=== PATIENT | male | born 1950 | race Caucasian/White ===

== ENCOUNTER 2016-08-23 13:23 | Emergency (ER) | payer MEDICARE ==
[~2016-08-23] VITALS: Ht 167.6 cm; Wt 84.6 kg
[~2016-08-23 13:23] MED LIST: AMLO5TAB2 PO; ASPI-515 PO; ASPI325T4 PO; ATOR80TA75 PO; CALC250T PO; CHOL10003 PO; CLON-364 PO; CLON2TAB2 PO; FISH1CAP PO; IBUP800T PO; METO-99 PO; MULT-717 PO; OXYC-229 PO; OXYC20TA2 PO; RISP2TAB3 PO; SIMV20TA3 PO; TRAZ100T15 PO; VITA1TAB19 PO; VITA400C42 PO
[2016-08-23] MEDS ORDERED: SODIUM CHLORIDE 0.9% 1,000 ML IV ONE (13:38)
[2016-08-23] MEDS ORDERED: ASPIRIN 81 MG TABLET CHEW PO ONE (14:00)
[2016-08-23] MEDS ORDERED: SODIUM CHLORIDE FLUSH 10ML SYR IVF ONE (14:00)
[2016-08-23 14:13] LABS: HEMOGLOBIN 12.5 g/dL (13.7-18.0)
[2016-08-23 14:26] LABS: ASPARTATE AMINO TRANSFERASE 13 U/L (15-37); BLOOD UREA NITROGEN 14 mg/dL (7-18)
[2016-08-23 14:31] LABS: IS PT STATUS REG ER OR PRE ER? YES
[2016-08-23 17:08] VITALS: BP 147/79
[2016-08-23] MEDS ORDERED: ASPIRIN 81 MG TABLET CHEW ONE (18:41)
[2016-08-23 20:04] LABS: DAU SCREEN DISCLAIMER
== END 2016-08-23 20:11 | disposition home or self-care (01) ==
LOC: ED 19:52
DX: R53.1 Weakness (principal); M54.5 Low back pain; G89.29 Other chronic pain; R41.82 Altered mental status, unspecified; Z86.73 Personal history of transient ischemic attack (TIA), and cerebral infarction without residual deficits; I10 Essential (primary) hypertension; R73.9 Hyperglycemia, unspecified; R51 Headache; R29.6 Repeated falls; I48.91 Unspecified atrial fibrillation
CPT/HCPCS: 36415; 70450; 71010; 80053; 80307; 81003; 83880; 84484; 85025; 93005; 96360; 99285; J7030

== ENCOUNTER 2016-10-08 19:45 | Emergency (ER) | payer MEDICARE ==
[~2016-10-08] VITALS: Ht 167.6 cm; Wt 89.4 kg
[2016-10-08] MEDS ORDERED: SODIUM CHLORIDE 0.9% 1,000 ML IV ONE (19:54)
[2016-10-08] MEDS ORDERED: SODIUM CHLORIDE FLUSH 10ML SYR IVF ONE (20:00)
[2016-10-08] MEDS ORDERED: OXYC10TA6 PO (20:21)
[2016-10-08] MEDS ORDERED: VITA1TAB55 PO-COUM (20:27)
[2016-10-08] MEDS ORDERED: IBUP800T PO (20:27)
[2016-10-08] MEDS ORDERED: calcium PO (20:27)
[2016-10-08] MEDS ORDERED: METO-99 PO (20:27)
[2016-10-08] MEDS ORDERED: VITA400C42 PO (20:27)
[2016-10-08] MEDS ORDERED: PROM25TA10 PO (20:27)
[2016-10-08 20:35] LABS: ASPARTATE AMINO TRANSFERASE 7 U/L (15-37); BLOOD UREA NITROGEN 11 mg/dL (7-18)
[2016-10-08 20:58] VITALS: BP 132/63
[2016-10-08] MEDS ORDERED: OMNIPAQUE 350 MG/ML, 100ML BOTTLE ONE (23:59)
== END 2016-10-08 22:46 | disposition home or self-care (01) ==
LOC: ED 20:49
DX: R10.84 Generalized abdominal pain (principal); R11.0 Nausea; I10 Essential (primary) hypertension; R73.9 Hyperglycemia, unspecified; Z86.73 Personal history of transient ischemic attack (TIA), and cerebral infarction without residual deficits
CPT/HCPCS: 36415; 74177; 80053; 81003; 83605; 83690; 85025; 99285; Q9967

== ENCOUNTER 2016-11-04 11:50 | Emergency (ER) | payer MEDICARE ==
[~2016-11-04] VITALS: Ht 167.6 cm; Wt 90.8 kg
[~2016-11-04 11:50] MED LIST changes: +OXYC10TA6 PO; +PROM25TA10 PO; +VITA1TAB55 PO-COUM; +calcium PO
[2016-11-04 11:55] VITALS: BP 128/77
[2016-11-04] MEDS ORDERED: OXYcodone/APAP 5/325MG TABLET PO ONE (13:00)
[2016-11-04] MEDS ORDERED: HYDROmorphone 1 MG/ML, 1ML ONE (14:23)
[2016-11-04] MEDS ORDERED: HYDROmorphone 1 MG/ML, 1ML IM ONE (14:30)
== END 2016-11-04 15:18 | disposition home or self-care (01) ==
LOC: ED 14:25
DX: S39.012A Strain of muscle, fascia and tendon of lower back, initial encounter (principal); W19.XXXA Unspecified fall, initial encounter; Y93.89 Activity, other specified; Y92.89 Other specified places as the place of occurrence of the external cause; Y99.9 Unspecified external cause status; I10 Essential (primary) hypertension; Z86.73 Personal history of transient ischemic attack (TIA), and cerebral infarction without residual deficits
CPT/HCPCS: 72110; 96372; 99284; J1170

== ENCOUNTER 2017-10-11 10:18 | Emergency (ER) | payer MEDICARE ==
[~2017-10-11] VITALS: Ht 167.6 cm; Wt 91.0 kg
[~2017-10-11 10:18] MED LIST changes: +ASPI325T17 PO; -ASPI325T4 PO; +ATOR-2 PO; -ATOR80TA75 PO; +IBUP-1223 PO; -IBUP800T PO; -OXYC-229 PO; +OXYC-307 PO
[2017-10-11 10:56] LABS: BASOPHILS # (AUTO) 0.03 x10^3/uL (0-0.1); BASOPHILS % (AUTO) 0 % (0-1); EOSINOPHILS # (AUTO) 0.11 x10^3/uL (0-0.4); EOSINOPHILS % (AUTO) 1 % (1-7); LYMPHOCYTES # (AUTO) 1.06 x10^3/uL (1-3.4); LYMPHOCYTES % (AUTO) 14 % (22-44); MD NO; MEAN CORPUSCULAR HEMOGLOBIN 29.1 pg (27.5-34.5); MEAN CORPUSCULAR HGB CONC 33.6 g/dL (33.2-36.2); MEAN CORPUSCULAR VOLUME 86.7 fL (81-97); MEAN PLATELET VOLUME 7.7 fL (7.4-10.4); MONOCYTES # (AUTO) 0.52 x10^3/uL (0.2-0.8); MONOCYTES % (AUTO) 7 % (2-9); NEUTROPHILS # (AUTO) 5.94 x10^3/uL (1.8-6.8); NEUTROPHILS % (AUTO) 78 % (42-75); PLATELET COUNT 255 x10^3/uL (130-400); RED BLOOD COUNT 4.57 x10^6/uL (4.38-5.82); RED CELL DISTRIBUTION WIDTH 15.6 % (9.4-14.8)
[2017-10-11] MEDS ORDERED: SODIUM CHLORIDE FLUSH 10ML SYR IVF ONE (11:00)
[2017-10-11 11:02] LABS: INTERNATIONAL NORMALIZED RATIO 1.12 (0.93-1.1); PROTHROMBIN TIME 11.6 Seconds (9.6-11.5)
[2017-10-11 11:07] LABS: ALANINE AMINOTRANSFERASE 20 U/L (12-78); ALBUMIN 3.4 g/dL (3.4-5.0); ANION GAP 5 mmol/L (5-15); CALCIUM 8.3 mg/dL (8.5-10.1); CHLORIDE 105 mmol/L (98-107); CREATININE 1.15 mg/dL (0.7-1.3)
[2017-10-11 11:09] LABS: ALKALINE PHOSPHATASE 91 U/L (45-117); BILIRUBIN,TOTAL 0.3 mg/dL (0.2-1.0)
[2017-10-11] MEDS ORDERED: GADOBUTROL 10 MMOL/10 ML PFS ONE (11:43)
[2017-10-11 12:02] LABS: ACETAMINOPHEN < 2 mcg/mL (10-30); SALICYLATE LEVEL < 1.7 mg/dL (2.8-20.0)
[2017-10-11 12:58] LABS: MICROSCOPIC NOT IND
[2017-10-11 13:00] LABS: CULTURE INDICATED? NO
[2017-10-11 13:11] LABS: AMPHETAMINE SCREEN, URINE Negative (Negative); BARBITURATE SCREEN, URINE Negative (Negative); BENZODIAZEPINE SCREEN, URINE Negative (Negative); CANNABINOID SCREEN, URINE Negative (Negative); COCAINE SCREEN, URINE Negative (Negative); METHADONE SCREEN, URINE Negative (Negative); OPIATE SCREEN, URINE Positive (Negative)
[2017-10-11 13:29] VITALS: BP 139/66
== END 2017-10-11 14:18 | disposition home or self-care (01) ==
LOC: ED 14:12
DX: R47.81 Slurred speech (principal); I10 Essential (primary) hypertension; E11.65 Type 2 diabetes mellitus with hyperglycemia; G89.29 Other chronic pain; F31.9 Bipolar disorder, unspecified; Z86.73 Personal history of transient ischemic attack (TIA), and cerebral infarction without residual deficits
CPT/HCPCS: 36415; 70450; 70553; 71045; 80053; 80307; 80329; 81003; 82140; 82962; 85025; 85610; 93005; 99285; A9585; G0480

== ENCOUNTER 2018-09-11 02:17 | Emergency (ER) | payer MEDICARE ==
[~2018-09-11] VITALS: Ht 167.6 cm; Wt 82.0 kg
[~2018-09-11 02:17] MED LIST changes: +AMLO-150 PO; -AMLO5TAB2 PO; -CLON-364 PO; +CLON0.5T11 PO; -CLON2TAB2 PO; +CLON2TAB9 PO; +TRAZ-137 PO; -TRAZ100T15 PO
--- NOTE | 2018-09-11 02:29 | NUR ---
PT TO ROOM FROM TRIAGE WITH C/O diffuse abdominal pain x 1 week, worse today, and worse after eating. Pt denies any N/V/D.
[2018-09-11] MEDS ORDERED: ONDANSETRON 2MG/ML, 2ML ONE (02:47)
[2018-09-11] MEDS ORDERED: HYDROmorphone 2 MG/ML, 1ML ONE ×2 (02:48→04:23)
[2018-09-11] MEDS ORDERED: FAMOTIDINE 20 MG/2 ML ONE (02:48)
[2018-09-11 02:57] LABS: BASOPHILS # (AUTO) 0.02 x10^3/uL (0-0.1); BASOPHILS % (AUTO) 0 % (0-1); EOSINOPHILS # (AUTO) 0.05 x10^3/uL (0-0.4); EOSINOPHILS % (AUTO) 1 % (1-7); LYMPHOCYTES % (AUTO) 20 % (22-44); MD NO; MEAN CORPUSCULAR HEMOGLOBIN 31.2 pg (27.5-34.5); MEAN CORPUSCULAR HGB CONC 34.2 g/dL (33.2-36.2); MEAN CORPUSCULAR VOLUME 91.4 fL (81-97); MEAN PLATELET VOLUME 7.6 fL (7.4-10.4); MONOCYTES # (AUTO) 0.55 x10^3/uL (0.2-0.8); MONOCYTES % (AUTO) 8 % (2-9); NEUTROPHILS % (AUTO) 71 % (42-75); PLATELET COUNT 235 x10^3/uL (130-400); RED BLOOD COUNT 4.83 x10^6/uL (4.38-5.82)
[2018-09-11] MEDS: HYDROmorphone 2 MG/ML, 1ML IVPush PRN ×2 (02:57→04:24)
[2018-09-11] MEDS ORDERED: ONDANSETRON 2MG/ML, 2ML IVPush ONE (03:00)
[2018-09-11] MEDS ORDERED: FAMOTIDINE 20 MG/2 ML IVP ONE (03:00)
[2018-09-11] MEDS ORDERED: SODIUM CHLORIDE FLUSH 10ML SYR IVF ONE (03:00)
[2018-09-11] MEDS ORDERED: LIDOCAINE-MPF 1%, 5ML ONE (03:03)
[2018-09-11] MEDS ORDERED: CLON1TAB11 PO (03:04)
--- NOTE | 2018-09-11 03:06 | NUR ---
IV PLACED. PT MEDICATED PER EMAR WITH DILAUDID 1MG, ZOFRAN 4MG, AND PEPCID 20MG.
[2018-09-11 03:09] LABS: INTERNATIONAL NORMALIZED RATIO 1.16 (0.93-1.1); PROTHROMBIN TIME 12.1 Seconds (9.6-11.5)
[2018-09-11 03:10] LABS: ALANINE AMINOTRANSFERASE 18 U/L (12-78); ANION GAP 8 mmol/L (5-15); CALCIUM 8.8 mg/dL (8.5-10.1); CHLORIDE 108 mmol/L (98-107); CREATININE 1.05 mg/dL (0.7-1.3)
[2018-09-11 03:12] LABS: ALKALINE PHOSPHATASE 61 U/L (45-117); BILIRUBIN,TOTAL 0.7 mg/dL (0.2-1.0); TOTAL PROTEIN 7.2 g/dL (6.4-8.2)
--- NOTE | 2018-09-11 03:35 | NUR ---
PT TAKEN TO CT.
[2018-09-11] MEDS ORDERED: OMNIPAQUE 350 MG/ML, 100ML BOTTLE ONE (03:47)
--- NOTE | 2018-09-11 04:31 | NUR ---
PT BACK FROM CT. PT MEDICATED PER EMAR FOR PAIN. VSS.
[2018-09-11 04:58] LABS: MICROSCOPIC NOT IND
[2018-09-11 05:02] LABS: CULTURE INDICATED? NO
[2018-09-11] MEDS ORDERED: MAALOX/HYOSCYAMINE/LIDOCAINE 45 ML BTL ONE (05:20)
--- NOTE | 2018-09-11 05:21 | NUR ---
PHYSICIAN AT BEDSIDE, UPDATED ON POC. PT MEDICATED WITH GI COCKTAIL PER EMAR. VSS
[2018-09-11] MEDS ORDERED: MAALOX/HYOSCYAMINE/LIDOCAINE 45 ML BTL PO ONE (05:30)
[2018-09-11 06:00] VITALS: BP 133/66
== END 2018-09-11 06:07 | disposition home or self-care (01) ==
LOC: ED 03:59
DX: R10.84 Generalized abdominal pain (principal); E11.9 Type 2 diabetes mellitus without complications; I10 Essential (primary) hypertension; E78.5 Hyperlipidemia, unspecified; Z86.73 Personal history of transient ischemic attack (TIA), and cerebral infarction without residual deficits
CPT/HCPCS: 36415; 74177; 80053; 81003; 83605; 83690; 85025; 85610; 85730; 96374; 96375; 96376; 99284; J1170; J2405; J3490; Q9967

== ENCOUNTER 2018-09-11 11:34 | Emergency (ER) | payer MEDICARE ==
[~2018-09-11] VITALS: Ht 167.6 cm; Wt 81.0 kg
[~2018-09-11 11:34] MED LIST changes: +CLON1TAB11 PO
[2018-09-11 11:46] VITALS: BP 128/91
[2018-09-11 12:10] LABS: BASOPHILS # (AUTO) 0.02 x10^3/uL (0-0.1); BASOPHILS % (AUTO) 0 % (0-1); EOSINOPHILS # (AUTO) 0.02 x10^3/uL (0-0.4); EOSINOPHILS % (AUTO) 0 % (1-7); LYMPHOCYTES # (AUTO) 1.56 x10^3/uL (1-3.4); LYMPHOCYTES % (AUTO) 23 % (22-44); MD NO; MEAN CORPUSCULAR HEMOGLOBIN 30.7 pg (27.5-34.5); MEAN CORPUSCULAR HGB CONC 33.5 g/dL (33.2-36.2); MEAN CORPUSCULAR VOLUME 91.5 fL (81-97); MEAN PLATELET VOLUME 7.7 fL (7.4-10.4); MONOCYTES # (AUTO) 0.58 x10^3/uL (0.2-0.8); MONOCYTES % (AUTO) 9 % (2-9); NEUTROPHILS # (AUTO) 4.73 x10^3/uL (1.8-6.8); NEUTROPHILS % (AUTO) 68 % (42-75); PLATELET COUNT 279 x10^3/uL (130-400); RED BLOOD COUNT 4.99 x10^6/uL (4.38-5.82); RED CELL DISTRIBUTION WIDTH 14.5 % (9.4-14.8)
--- NOTE | 2018-09-11 12:13 | NUR ---
PT TO ED FOR ABD BURNING WITH MEALS. PT WAS SEENT HIS AM AND PRESCRIBED OMEPRAZOLE. PT STATES WENT HOME AND TOOK MED WTIH NO RELIEF, SO CAME BACK. EDMD PRESENT FOR ASSESSMENT. AWAITING ORDERS.
--- NOTE | 2018-09-11 12:14 | NUR ---
PER EDMD, WILL CANCEL UA.
[2018-09-11] MEDS ORDERED: FAMOTIDINE 20 MG TABLET ONE (12:16)
[2018-09-11] MEDS ORDERED: MAALOX/HYOSCYAMINE/LIDOCAINE 45 ML BTL ONE (12:17)
--- NOTE | 2018-09-11 12:19 | NUR ---
PT MEDICATED PER MAR.
[2018-09-11 12:22] LABS: ALBUMIN 4.2 g/dL (3.4-5.0); ANION GAP 8 mmol/L (5-15); CALCIUM 9.2 mg/dL (8.5-10.1); CHLORIDE 108 mmol/L (98-107)
[2018-09-11 12:27] LABS: ALANINE AMINOTRANSFERASE 19 U/L (12-78); ALKALINE PHOSPHATASE 65 U/L (45-117); BILIRUBIN,TOTAL 0.9 mg/dL (0.2-1.0); CREATININE 1.15 mg/dL (0.7-1.3); TOTAL PROTEIN 7.4 g/dL (6.4-8.2)
[2018-09-11] MEDS ORDERED: FAMOTIDINE 20 MG TABLET PO ONE (12:30)
[2018-09-11] MEDS ORDERED: MAALOX/HYOSCYAMINE/LIDOCAINE 45 ML BTL PO ONE (12:30)
== END 2018-09-11 13:16 | disposition home or self-care (01) ==
LOC: ED 13:10
DX: K29.00 Acute gastritis without bleeding (principal); I10 Essential (primary) hypertension; E11.9 Type 2 diabetes mellitus without complications; E78.5 Hyperlipidemia, unspecified; Z86.73 Personal history of transient ischemic attack (TIA), and cerebral infarction without residual deficits
CPT/HCPCS: 36415; 80053; 83690; 85025; 93005; 99284